=== PATIENT | female | born 1955 ===

== ENCOUNTER 2025-07-12 13:57 | Outpatient (REF) | payer OTHER, SELFPAY ==
[2025-07-12 18:08] LABS: MANUAL DIFF FLAG NO
[2025-07-12 18:13] LABS: Hematocrit 43.6 % (37.0-47.0); Hemoglobin 14.1 g/dl (12.0-16.0); Imm Gran Abs Auto 0.03 X10*3/uL (0.00-0.03); Imm Gran Pct Auto 0.4 % (0.0-0.4); Lymphocytes Absolute Auto 1.4 X10*3/uL (1.2-4.9); Mean Corpuscular HGB Conc 32.3 g/dl (31.0-35.0); Mean Corpuscular Hemoglobin 30.1 pg (27.0-33.0); Mean Corpuscular Volume 93.2 fL (80.0-98.0); NRBC Abs Auto 0.000 X10*3/uL (0.0-0.012); NRBC Pct Auto 0.0 /100WBC (0.0-0.2); Platelet Count 185 X10*3/uL (160-400); Red Blood Count 4.68 X10*6/uL (4.20-5.50); White Blood Count 7.2 X10*3/uL (4.8-10.8)
[2025-07-12 18:20] LABS: Appearance Urine Clear; Glucose Urine UA 100 mg/dL (Negative); PH 6.0 (5.0-9.0); Specific Gravity - Urine 1.010 (1.005-1.025); UMIC TRIGGER UACC YES
[2025-07-12 18:39] LABS: Alanine Aminotransferase 39 U/L (0-31); Albumin Level 4.3 g/dL (3.5-5.0); Alkaline Phosphatase 123 U/L (39-117); Anion Gap 11 (12-20); Aspartate Amino Transferase 46 U/L (5-31); Blood Urea Nitrogen 13 mg/dL (9-16); Calcium 9.7 mg/dL (8.4-10.2); Carbon Dioxide 30 mmol/L (22-29); Chloride 106 mmol/L (96-108); Cholesterol 184 mg/dL (<200); Estimated Glomerular Filt Rate > 60; HDL Cholesterol 52 mg/dL (>40); Magnesium 2.5 mg/dL (1.6-2.6); Potassium 4.7 mmol/L (3.3-5.1); Sodium 142 mmol/L (135-145); Total Protein 7.4 g/dL (6.5-8.0); Triglycerides 193 mg/dL (<150)
[2025-07-12 18:59] LABS: Folate > 20.0 ng/mL (> or = 4.0); Vitamin B12 > 2000 pg/mL (200-900)
[2025-07-12 19:39] LABS: Free T4 (Free Thyroxine) 0.89 ng/dL (0.71-1.85)
[2025-07-12 19:43] LABS: Microalbum/Creatinine Ratio Ur 12.7 ug/mg cr (<30)
[2025-07-13 04:31] LABS: Syphilis Screen Nonreactive (Nonreactive)
[2025-07-13 04:42] LABS: HBS Num1 0.00 mIU/mL (0-7.99); HBsAGNum1 0.24 S/CO (0.00-0.99); HIV Num 1 0.05 S/CO (0.00-0.99); Hepatitis B Surface Antigen Negative (Negative); ~HepC Num1 0.15 S/CO (0.00-0.79); ~Hepatitis B Surface Antibody NONREACTIVE (Nonreactive); ~Hepatitis C Antibody Nonreactive (Nonreactive)
[2025-07-18 17:32] LABS: VITAMIN D (1,25 OH) D3 49 pg/mL; Vit D (1,25-Dihydroxy) Total 49 pg/mL (18-72); Vitamin D (1,25 OH) D2 <8 pg/mL
== END 2025-07-12 13:58 | disposition home or self-care (01) ==
LOC: HO.HKASLDS 13:57
PROVIDERS: PCP Student in an Organized Health Care Education/Training Program; Visit Provider Student in an Organized Health Care Education/Training Program
DX: Z76.89 Persons encountering health services in other specified circumstances (principal); Z13.9 Encounter for screening, unspecified; E11.9 Type 2 diabetes mellitus without complications; D17.9 Benign lipomatous neoplasm, unspecified; M85.80 Other specified disorders of bone density and structure, unspecified site; M17.12 Unilateral primary osteoarthritis, left knee; Z85.43 Personal history of malignant neoplasm of ovary; Z90.710 Acquired absence of both cervix and uterus; Z98.49 Cataract extraction status, unspecified eye
CPT/HCPCS: 36415; 80053; 80061; 81001; 82043; 82570; 82607; 82652; 82746; 83036; 83735; 84439; 84443; 85025; 86706; 86780; 86803; 87340; 87389; 99202

== ENCOUNTER 2025-07-12 13:57 | Outpatient (AMB) | payer OTHER, SELFPAY ==
[2025-07-12 14:02] VITALS: BP 123/60; PULSE 82; RESP 16; TEMP 36.6; O2SAT 99; BMI 24.7
--- NOTE | 2025-07-12 14:02 | MHC.PC.OV ---
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: No Accompanied by: Self / Same As Patient Allergies No Known Allergies Allergy (Verified 07/12/25 14:03) Tobacco use date assessed: 07/12/25 Fall risk assessment: No Falls in past year Last assessed Fall Risk: 07/12/25 Dental Screening Dental Screen Date: 07/12/25 Did you have a dental visit in the last 12 months?: Yes Did you have a dental problem in the last 6 months where you did not have access to dental care?: No Was dental information given to patient?: Patient has dentist HPI HPI Comments History of Present Illness Details History of Present Illness The patient is a 69-year-old female presenting with management of diabetes mellitus type 2 and osteopenia , as well as evaluation of a lipoma and arthritis of the left knee. Diabetes Mellitus Type 2: - The patient has a history of diabetes mellitus type 2, with a recent hemoglobin A1c of 7.1% and glucose level of 147 mg/dL. - She has not consulted a director of teaching and learning or environmental educator recently. Osteopenia - The patient has osteopenia confirmed by a DEXA scan, and is currently taking calcium D3 supplements. Lipoma: - A lipoma was identified on the patient's back, which has been present for approximately three years and is increasing in size. Arthritis of the Left Knee: - The patient reports arthritis in the left knee, with associated pain and crepitus. She has been told by orthopedic surgeon she needs surgery and she refuses them surgery she has done conservative treatment with physical therapy and refuses to go to physical therapy Review of Systems - Musculoskeletal: Reports arthritis in the left knee with pain and crepitus. - Endocrine: Reports diabetes mellitus type 2, with recent A1c of 7.1%. 10-point ROS reviewed and negative except as noted in HPI Past Medical History - Diabetes Mellitus Type 2 - Ovarian Cancer - Osteopenia - Lipoma - Arthritis of the left knee Health Maintenance - Colonoscopy performed with polyp removal, repeat recommended in five years. - DEXA scan performed, confirming osteoporosis. - Mammography performed, next due in the coming year. -showed ovarian cancer as per patient she had ovary removed and uterus Physical Exam General: Well-appearing, in no acute distress. Uses a cane for ambulation. Vital signs: Within normal limits. HEENT: Normocephalic, atraumatic. PERRLA, EOMI. Conjunctiva clear, sclera anicteric. Oropharynx clear, mucous membranes moist. TMs intact bilaterally. Neck: Supple, no lymphadenopathy, no thyromegaly, no JVD or carotid bruits. Cardiovascular: RRR, normal S1/S2, no murmurs, rubs, or gallops. Peripheral pulses 2+ and symmetric. No edema. Respiratory: Lungs clear to auscultation bilaterally, no wheezes, rales, or rhonchi. Normal effort. Abdomen: Soft, non-tender, non-distended. Normoactive bowel sounds. No hepatosplenomegaly, no masses. MSK: Full range of motion, no joint swelling or deformity. Normal gait. Arthritis of the left knee noted with crepitus. Varicose veins present in the left leg and right leg. Skin: Warm, dry, intact. No rashes, lesions, or pallor. Neuro: Alert and oriented x3. Cranial nerves II-XII intact. Strength 5/5 throughout. Sensation intact. Reflexes 2+ symmetric. Normal coordination and gait. Psych: Appropriate mood and affect. Normal judgment and insight. Plan 1. Diabetes Mellitus Type 2 - Plan to order comprehensive metabolic panel and lipid panel to monitor diabetes control. - Encourage consultation with a director of teaching and learning and environmental educator. 2. Osteopenia - Continue calcium D3 supplementation. - Follow-up DEXA scan to monitor bone density. 3. Lipoma - Ultrasound ordered to evaluate the lipoma on the back. 4. Arthritis Of The Left Knee - Consideration for physical therapy to improve knee function and reduce pain. - Discussed potential for knee replacement surgery if conservative measures fail. Discussion Notes During the visit, we discussed the management of diabetes mellitus type 2, including the importance of regular monitoring and potential consultation with a director of teaching and learning. We also reviewed the patient's osteopenia management plan, emphasizing the continuation of calcium D3 supplementation and the need for follow-up DEXA scans. The lipoma on the patient's back will be evaluated with an ultrasound to determine its nature. For arthritis of the left knee, we considered physical therapy and discussed the possibility of knee replacement surgery if symptoms persist. Patient was informed and verbally consented to the use of an ambient scribe for clinic note documentation during this visit. Patient Instructions - Continue taking calcium D3 supplements as prescribed. - Schedule an appointment with a director of teaching and learning and environmental educator. - schedule appointment for interactive media designer - Follow up with the ordered ultrasound for the lipoma. - Consider physical therapy for knee arthritis. - Return for follow-up in two weeks to review test results and treatment progress. [facility] Medical History (Updated 07/12/25 @ 14:33 by Donnie Mayes MD) Lipoma Diabetes type 2 Family History (Updated 07/12/25 @ 14:12 by Earl Christy MA) Father Heart problem Cancer Mother Heart problem Social History (Updated 07/12/25 @ 14:12 by Earl Christy MA) Housing: Apartment Alcohol intake: current Alcohol intake frequency: does not drink Patient Tobacco Use Status: Never used Tobacco service: No Current occupational status: disabled Cognitive needs: Yes (cane) Hearing needs: No Vision needs: Yes (rx glasses) Questionnaire PHQ-9 Over the last 2 weeks, how often have you been bothered by any of the following problems? 1. Little interest or pleasure in doing things: several days 2. Feeling down, depressed, or hopeless: not at all 3. Trouble falling or staying asleep, or sleeping too much: nearly every day 4. Feeling tired or having little energy: nearly every day 5. Poor appetite or overeating: several days 6. Feeling bad about yourself - or that you are a failure or have let yourself or your family down: not at all 7. Trouble concentrating on things, such as reading the newspaper or watching television: several days 8. Moving or speaking so slowly that other people could have noticed. Or the opposite - being so fidgety or restless that you have been moving around a lot more than usual: several days 9. Thoughts that you would be better off or of hurting yourself in some way: not at all Total score: 10 Source: Developed by Drs. Willie Waller, Aixa Marino, Damon Dougherty and colleagues, with an educational ole from [employer]. Thrive Questionnaire I am a: Patient What is your living situation today?: I have a place to live, but I am worried about losing it in the future Within the past 12 months, did the food you bought not last and you didn't have the money to get more?: I choose not to answer this question Within the past 12 months, did you worry whether your food would run out before you got money to buy more?: Sometimes True Do you have trouble paying for medicines?: No Do you have trouble getting transportation to medical appointments?: No Do you have trouble paying your heating and electricity bill?: Yes Do you have trouble taking care of your child, family member or friend?: No Are you currently unemployed and looking for a job?: No Are you interested in more education?: I choose not to answer this question Please select the resources that you would like help with: None Currently or been in a relationship where the following occur: I choose not to answer THRIVE Score: 3 AUDIT C Alcohol Use Questionnaire (AUDIT-C) 1. How often do you have a drink containing alcohol?: Never Total Score: 0 RAHEEL-7 AMB Questionnaire RAHEEL-7 Feeling nervous, anxious, or on edge: 3 = Nearly every day Not being able to stop or control worryin = Several days Worrying too much about different things: 2 = More than half the days Trouble relaxin = More than half the days Being so restless that it is hard to sit still: 0 = Not at all Becoming easily annoyed or irritable: 0 = Not at all Feeling afraid as if something awful might happen: 0 = Not at all Total RAHEEL-7 score (0-4 normal; 5-9 mild; 10-14 moderate; 15-21 severe): 8 Source: Developed by Drs. Willie Waller, Aixa Marino, Damon Dougherty and colleagues, with an educational ole from [employer]. Physical exam (Primary Care) Vital Signs: Last Vital Signs Temp 97.8 F 07/12/25 14:02 Pulse 82 07/12/25 14:02 Resp 16 07/12/25 14:02 BP 123/60 07/12/25 14:02 Pulse Ox 99 07/12/25 14:02 Oxygen Delivery Method Room Air 07/12/25 14:02 BMI result Body Mass Index 24.7 Tobacco/Smoking Status: Tobacco use Status Tobacco use date assessed 07/12/25 07/12/25 14:15 Patient Tobacco Use Status Never used Tobacco 07/12/25 14:15 PHQ-9: PHQ-9 Score PHQ-9: Total score 10 07/12/25 14:15 Currently or been in a relationship where the following occur: I choose not to answer Coding Level of Care Code New Pt Level 3 (54703) Diagnoses Establishing care with new doctor, encounter for Z76.89 Encounter for screening, unspecified Z13.9 Diabetes type 2 E11.9 Lipoma D17.9 Osteopenia M85.80 History of ovarian cancer Z85.43 History of hysterectomy Z90.710 Arthritis of left knee M17.12 History of cataract surgery Z98.49 Assessment & Plan Assessment & Plan (1) Establishing care with new doctor, encounter for: Code(s): Z76.89 - Persons encountering health services in other specified circumstances (2) Encounter for screening, unspecified: Code(s): Z13.9 - Encounter for screening, unspecified (3) Diabetes type 2: Code(s): E11.9 - Type 2 diabetes mellitus without complications Category: Medical (4) Lipoma: Code(s): D17.9 - Benign lipomatous neoplasm, unspecified Category: Medical (5) Osteopenia: Code(s): M85.80 - Other specified disorders of bone density and structure, unspecified site (6) History of ovarian cancer: Code(s): Z85.43 - Personal history of malignant neoplasm of ovary (7) History of hysterectomy: Code(s): Z90.710 - Acquired absence of both cervix and uterus (8) Arthritis of left knee: Code(s): M17.12 - Unilateral primary osteoarthritis, left knee (9) History of cataract surgery: Code(s): Z98.49 - Cataract extraction status, unspecified eye Plan Orders: Orders Complete Blood Count Auto Diff Today Z13.9 - Encounter for screening, unspecified, Z76.89 - Persons encountering health services in other specified circumstances Comprehensive Met. Panel Today Z13.9 - Encounter for screening, unspecified, Z76.89 - Persons encountering health services in other specified circumstances Hemoglobin A1c Today Z13.9 - Encounter for screening, unspecified, Z76.89 - Persons encountering health services in other specified circumstances Hepatitis B Surface Antigen Today Z13.9 - Encounter for screening, unspecified, Z76.89 - Persons encountering health services in other specified circumstances Magnesium Today Z13.9 - Encounter for screening, unspecified, Z76.89 - Persons encountering health services in other specified circumstances Syphilis Screen Today Z13.9 - Encounter for screening, unspecified, Z76.89 - Persons encountering health services in other specified circumstances UA CC w/rflx Micro + Cult Today Z13.9 - Encounter for screening, unspecified, Z76.89 - Persons encountering health services in other specified circumstances Vitamin B12 and Folate Today Z13.9 - Encounter for screening, unspecified, Z76.89 - Persons encountering health services in other specified circumstances Hepatitis B Surface Antibody Today Z13.9 - Encounter for screening, unspecified, Z76.89 - Persons encountering health services in other specified circumstances Hepatitis C Antibody Today Z13.9 - Encounter for screening, unspecified, Z76.89 - Persons encountering health services in other specified circumstances HIV Ab/Ag Today Z13.9 - Encounter for screening, unspecified, Z76.89 - Persons encountering health services in other specified circumstances Lipid Panel Today Z13.9 - Encounter for screening, unspecified, Z76.89 - Persons encountering health services in other specified circumstances TSH reflex Free T4 Today Z13.9 - Encounter for screening, unspecified, Z76.89 - Persons encountering health services in other specified circumstances Vitamin D 1,25 dihydroxy Today Z13.9 - Encounter for screening, unspecified, Z76.89 - Persons encountering health services in other specified circumstances Microalbumin, Random (w Creat) Today Z13.9 - Encounter for screening, unspecified, Z76.89 - Persons encountering health services in other specified circumstances Referrals Podiatry Referral E11.9 - Type 2 diabetes mellitus without complications, Z13.9 - Encounter for screening, unspecified Nutrition/Dietitian Referral E11.9 - Type 2 diabetes mellitus without complications Nurse Navigator Referral E11.9 - Type 2 diabetes mellitus without complications
--- OUTSIDE RECORDS SUMMARY | 2025-07-12 15:11 | XMS_ITS | Clinical Summary ---
Author Organization [address] Address [address] [place] [phone] Phone Care Team Providers Care Environmental Health Technologist Name Role Phone Sravani Washington MD Primary Care Prov ider Allergies No known active allergies Medications lancing device (BD LANCET DEVICE MISC) LANCET DEVICES (ONE TOUCH DELICA LANCING DEV) MISC 1 Each by Does not apply route daily. 06/27/20 24 Active blood-glucose meter kit BLOOD GLUCOSE MONITORING SUPPL (ONE TOUCH ULTRA SYSTEM KIT) W/DEVICE KIT Test bs 1 time daily 06/27/20 24 Active cholecalcifero l (VITAMIN D-3) 25 mcg (1,000 unit) capsule TAKE 1 CAPSULE BY MOUTH EVERY DAY 02/09/20 24 Active DULoxetine (CYMBALTA) [address] capsule TAKE 1 CAPSULE BY MOUTH EVERY DAY IN THE MORNING 12/30/19 23 Active vitamin E acetate (VITAMIN E ORAL) Take by mouth. Daily Active zolpidem (AMBIEN) 10 mg tablet TAKE 1 TABLET BY MOUTH EVERYDAY AT BEDTIME 06/24/20 20 Active blood-glucose meter kit Use once daily to check blood sugars 08/30/20 19 Active calcium carbonate-paris min D 600 mg-10 mcg (400 unit) per tablet TAKE 1 TABLET BY MOUTH TWICE A DAY 180 tablet 11/25/19 25 Active gabapentin (NEURONTIN) 600 mg tablet TAKE 1 TABLET BY MOUTH EVERY DAY 90 tablet 1 11/25/19 25 Active glucose blood (Blood Glucose Test) test strip USE INSTRUCTED 100 strip 12 12/01/19 25 Active lancets 33 gauge misc 1 (ONE) TIME EACH DAY. ONE TOUCH 100 each 3 12/01/19 25 026 Active dulaglutide (Trulicity) 1.5 mg/0.5 mL pen injector injection INJECT 0.5 ML (1.5 MG TOTAL) UNDER THE SKIN EVERY 7 (SEVEN) DAYS. 6 mL 1 02/18/20 25 Active triamcinolone (KENALOG) 0.1 % ointment Apply to the affected area nightly, if needed can use in the itchy area twice daily for up to two weeks. Otherwise continue nightly use 30 g 1 03/16/20 25 Active cetirizine (ZyrTEC) 10 mg tablet Take 1 tablet (10 mg total) by mouth 1 (one) time each day. 30 each 03/30/20 25 Active pravastatin (PRAVACHOL) 10 mg tablet TAKE 1 TABLET BY MOUTH EVERY DAY 90 tablet 1 04/03/20 25 Active aspirin 81 mg chewable tablet TAKE 1 TABLET BY MOUTH EVERY DAY 90 tablet 1 04/26/20 25 Active docusate sodium (COLACE) 100 mg capsule TAKE 1 CAPSULE BY MOUTH 1 TIME EACH DAY. 90 capsule 1 05/18/20 25 Active propranolol LA (INDERAL LA) 120 mg 24 hr capsule TAKE 1 CAPSULE BY MOUTH EVERY DAY 90 capsule 1 07/03/20 25 Active propranolol LA (INDERAL LA) 120 mg 24 hr capsule TAKE 1 CAPSULE BY MOUTH EVERY DAY 90 capsule 1 11/25/19 25 025 Discontinued Active Problems Problem Noted Date Diagnosed Date Lichen sclerosus 12/26/2024 Assessment & Plan (03/16/2025 2:23 PM EDT): Reviewed findings with patient. Well controlled. I reviewed the importance of regular maintenance topical steroid use to prevent symptoms, further scarring, and squamous cell cancer of the vulva. I also explained the importance of regular follow up to ensure she has no evidence of precancerous or cancerous changes and that she is not having side effects from her medication. I reviewed areas of application and amount of medication to use. Continue nightly triamcinolone and QAM coconut oil. Assessment & Plan (02/02/2025 3:59 PM EDT): I encouraged Shavonne to cut back on her triamcinolone to nightly with coconut oil in AM. She agrees to do this. Will follow up in 6 weeks. Assessment & Plan (12/26/2024 12:43 PM EDT): Reviewed findings with patient. I counseled her that findings are consistent with lichen sclerosus. I explained this is likely an autoimmune inflammatory condition and that the mainstay of therapy is use of maintenance topical steroid. I explained that women with lichen sclerosus are at about a 5 fold increased risk of SCC over the general population. Explained that the purpose of the steroid is to prevent symptoms, further scarring, and squamous cell cancer of the vulva. I also explained the importance of regular follow up to ensure she has no evidence of precancerous or cancerous changes and that she is not having side effects from her medication. I reviewed areas of application and amount of medication to use. She voiced understanding. She was given [facility] information re: LS today and will call with any questions. She will apply the triamcinolone ointment twice daily for two weeks, then nightly with coconut oil in the morning. Controlled type 2 diabetes migue mensah with complication, with long-term current use of insulin ([facility] V24, [facility] V28) 07/29/2024 Assessment & Plan (11/30/2024 11:57 AM EST): Fair control of diabetes. A1C: 8.9 Patient will continue with yearly Podiatric and Ophthomologic evaluations. Continue Dulaglutide 1.5mg. Patient does not tolerate metformin. Will recheck A1C before her next visit and adjust accordingly. Orders: Comprehensive metabolic panel; Future Hemoglobin A1c; Future Lipid panel with reflex to direct LDL; Future Microalbumin creatinine urine ratio; Future Renal cyst 02/13/2022 Stage 3a chronic kidney disease ([facility] V24, S/[facility] V28) 09/30/2021 Assessment & Plan (03/30/2025 2:50 PM EDT): Assessment & Plan (11/30/2024 11:57 AM EST): GFR has been borderline around 60. Patient is instructed to avoid nephrotoxics. I instructed her to prefer Tylenol for pain. Continue gabapentin as needed for neuropathic pain. DM (diabetes mellitus), type 2 with renal complications ([facility] V24, [facility] V28) 07/18/2021 Assessment & Plan (03/30/2025 2:50 PM EDT): Orders: Hemoglobin A1c; Future Basic metabolic panel; Future POLLOCK (nonalcoholic steatohepatitis) 12/08/2020 Elevated liver enzymes 12/08/2020 Chronic cough 04/16/2020 Constipation 11/11/2018 Osteopenia 08/11/2018 Vitamin D deficiency 07/04/2016 Insomnia 04/15/2016 High cholesterol 02/08/2014 Assessment & Plan (03/30/2025 2:50 PM EDT): Orders: Hemoglobin A1c; Future Basic metabolic panel; Future Assessment & Plan (11/30/2024 11:57 AM EST): Given the patients cardiac risk profile, the patient requires an LDL cholesterol of less than 70. Continue Pravastatin. I have instructed the patient on the principles of a low cholesterol diet and the importance of regular exercise. Back pain 12/22/2012 Overview (07/29/2024): H/o LS DJD Migraine 12/22/2012 Anxiety 12/22/2012 Immunizations Immunization Administration Dates Next Due Influenza Quadravalent, MDCK , 0.5ml, preservative free (Flucelvax) 6mo and older 06/28/2020 Influenza Quadravalent, MDCK , 0.5ml, with preservative (Flucelvax) 6mo and older 09/20/2021,07/10/2019,06/29/2017 Influenza trivalent, 0.5mL ( Fluad) 65yo and older 07/27/2023,07/29/2022 Influenza trivalent, 0.5mL ( Fluzone High-dose) 65yo and older 11/30/2024 Influenza trivalent, with pr eservative (Fluzone; Afluria) 6mo and older 07/04/2016,07/30/2015,07/21/2014,10/25 Pfizer SARS-CoV-2 COVID-19, mRNA, LNP-S, preservative free 02/03/2021 Pneumococcal conjugate 13 va lent (Prevnar 13, PCV13) 2mo and older 04/21/2022 Pneumococcal conjugate 20 va lent (Prevnar 20, PCV 20) 2mo and older 07/27/2023 Pneumococcal polysaccharide 23 valent (Pneumovax 23) 2yo and older 02/15/2016 TD, Adsorbed, Preservative Free 02/08/2014 Tdap Tetanus diptheria acell ular pertussis (Boostrix; Adacel) 7yo and older 05/20/2016 Zoster recombinant (Shingrix ) 19yo and older 07/10/2019 Surgical History Surgery Date Site/Laterality Comments HYSTERECTOMY PROCEDURE: HISTORICAL HYSTERECTOMY; COMMENT: 2003 CHOLECYSTECTOMY PROCEDURE: HISTORICAL CHOLECYSTECTOMY; COMMENT: 2011 BREAST BIOPSY 2017 Bilateral PROCEDURE: BX BREAST; PERC NEEDLE CORE W/IMAG GUID; COMMENT: 2017 b/l neg Medical History Medical History Date Comments Other specified personal his tory presenting hazards to health(V15.89) DX:Other specifie d personal history presenting hazards to health(V15.89) Endometrial cancer ([facility] V24, [facility] V28) 2000 DX:Endometrial cancer (HCC) Vitamin D deficiency 07/04/2016 DX:Vitamin D deficiency Osteopenia 08/11/2018 DX:Osteopenia Diabetes mellitus type 2, co ntrolled ([facility] V24, [facility] V28) 12/22/2012 DX:Diabetes mellitus type 2 , controlled (HCC) Constipation 11/11/2018 DX:Constipation Abnormal LFTs (liver function tests) DX:Abnormal LFTs (liver function tests) Autoimmune hepatitis ([facility] V24, [facility] V28) DX:Autoimmune hepatitis (HCC ) CKD (chronic kidney disease) stage 3, GFR 30-59 ml/min ([facility] V24, [facility] V28) 07/18/2021 DX:CKD (chronic kidney disea se) stage 3, GFR 30-59 ml/min ([facility]) DM (diabetes mellitus), type 2 with renal complications ([facility] V24, [facility] V28) 07/18/2021 DX:DM (diabetes mellitus), t ype 2 with renal complications (HCC) Family History Medical History Relation Name Comments Esophageal cancer Father No Known Problems Mother Breast cancer Sister 71 Cataracts Sister 71 Glaucoma Sister 71 Blindness Neg Hx Macular degeneration Neg Hx Strabismus Neg Hx Relation Name Status Comments Daughter Alive Father Mother Sister 71 Alive Son 1 Alive Son 2 Alive Social History Tobacco Use Types Packs/Day Years Used Date Smoking Tobacco: Never Smokeless Tobacco: Never Tobacco Cessation:Counseling Given: Not Answered Alcohol Use Standard Drinks/Week Comments No 0 (1 standard drink = 0.6 oz pur e alcohol) Interpersonal Safety Answer Date Record ed Physical Abuse Unrecognized value 09/15/2024 Verbal Abuse Unrecognized value 09/15/2024 Comments No Sex and Gender Information Value Date Recorded Sex Assigned at Not on file Legal Sex Female 6:16 PM EST Gender Identity Not on file Sexual Orientation Not on file Obstetrics History Para Term AB IAB SAB Ectopic Multiple Livin g Live Births 3 3 3 0 0 1 1 1 Date Outcome GA Total Labor Labor/2nd/3rd Weight Sex Type Anes PTL Cristel A1 A5 Name Clin Term Term Living Term Demise Term Last Filed Vital Signs Vital Sign Reading Time Taken Comments Blood Pressure 113/62 03/30/2025 1:00 PM EDT Pulse 78 03/30/2025 1:00 PM EDT Temperature 36.3 C (97.4 F) 11/30/2024 11:02 AM EST Respiratory Rate 14 02/02/2025 3:44 PM EDT Oxygen Saturation 99% 09/15/2024 1:13 PM EST Inhaled Oxygen Concentration - - Weight 63 kg (139 lb) 03/30/2025 1:00 PM EDT Height 162.6 cm (5' 4 ) 03/30/2025 1:00 PM EDT Body Mass Index 23.86 03/30/2025 1:00 PM EDT Plan of Treatment Upcoming Encounters Date Type Department Care Team (Late st Contact Info) Description 10/03/2025 11:30 AM EST Office Visit Adult Medicine [address] [phone] Sravani Washington MD [address] [place] [address] 12/20/2025 4:30 PM EDT Appointment Radiology Department - [address] [phone] Health Maintenance Due Date Last Done Comments RSV Immunization Adult Patients (1 - Risk 60-74 years 1-dose series) 2016 Zoster Vaccines (2 of 2) 09/04/2019 07/10/2019 Medicare Annual Wellness Visit 09/20/2022 Social Influencers of Health Screening 09/20/2022 Depression Screening 10/12/2024 04/07/2024 COVID-19 Vaccine ( season) 2025 04/05/2022, 09/20/2021, 02/03/2021, Additional history exists Influenza Vaccine (#1) 2025 , 07/27/2023, 07/29/2022, Additional history exists Diabetes: Annual Foot Exam 07/14/2025 07/14/2024 Falls Risk Assessment 09/15/2025 09/15/2024 Diabetes: Blood Sugar Control Test (HGBA1C) 09/22/2025 03/23/2025, 09/01/2024, 05/16/2024, Additional history exists Diabetes: Annual Retina Eye Exam 02/20/2026 02/20/2025, 08/08/2024, 06/08/2024 Diabetes: Annual Urine Albumin-Creatinine Ratio (uACR) 03/23/2026 03/23/2025, 05/16/2024 Diabetes: Annual GFR (Glomerular Filtration Rate) 03/23/2026 03/23/2025, 07/13/2023 Hypertension/CHF/CAD Annual BMP Blood Test 03/23/2026 03/23/2025, 07/13/2023 DTaP,Tdap,and Td Vaccines (2 - Td or Tdap) 05/20/2026 05/20/2016, 02/08/2014 Breast Cancer Screening 12/14/2026 12/15/19, 05/30/2023, 05/26/2022, Additional history exists Colorectal Cancer Screening: Colonoscopy 09/15/2027 09/15/2024 Cholesterol Screening (Lipid Panel) 03/23/2030 03/23/2025, 07/13/2023 Osteoporosis Screening (Bone Density Screening) 12/15/2034 12/15/2024 Hepatitis C Screening Completed 11/22/2018 Pneumococcal Vaccine: 50+ Years Completed 07/27/2023, 04/21/2022, 02/15/2016 HIB Vaccines Aged Out No longer eligi ble based on patient's age to complete this topic HPV Vaccines Aged Out No longer eligi ble based on patient's age to complete this topic Hepatitis A Vaccines Aged Out No long er eligible based on patient's age to complete this topic Hepatitis B Vaccines Aged Out No long er eligible based on patient's age to complete this topic IPV Vaccines Aged Out No longer eligi ble based on patient's age to complete this topic MMR Vaccines Aged Out No longer eligi ble based on patient's age to complete this topic Meningococcal ACWY Vaccine Aged Out N o longer eligible based on patient's age to complete this topic Meningococcal B Vaccine Aged Out No l onger eligible based on patient's age to complete this topic RSV Immunization Patients Under 20 months Aged Out No longer eligible based on patient's age to complete this topic Varicella Vaccines Aged Out No longer eligible based on patient's age to complete this topic Procedures Procedure Name Priority Date/Time Associated Diagnosis Comments MICROALBUMIN CREATININE URINE RATIO Routine 03/23/2025 11:44 AM EDT Controlled type 2 diabetes mellitus with complication, with long-term current use of insulin ([facility] V24, [facility] V28) COMPREHENSIVE METABOLIC PANEL Routine 03/23/2025 11:44 AM EDT Controlled type 2 diabetes mellitus with complication, with long-term current use of insulin ([facility] V24, [facility] V28) HEMOGLOBIN A1C Routine 03/23/2025 11:44 AM EDT Controlled type 2 diabetes mellitus with complication, with long-term current use of insulin ([facility] V[facility], [facility] V28) LIPID PANEL WITH REFLEX TO DIRECT LDL Routine 03/23/2025 11:44 AM EDT Controlled type 2 diabetes mellitus with complication, with long-term current use of insulin ([facility] V[facility], [facility] V28) EXTERNAL DIABETIC RETINA EYE EXAM 02/20/2025 BD BONE DENSITY DXA AXIAL SKELETON Routine 12/15/2024 3:01 PM EST Osteoporosis screening MG MAMMO DIGITAL SCREENING W CRESENCIO BILAT Routine 12/14/2024 4:27 PM EST Encounter for screening mammogram for malignant neoplasm of breast COLONOSCOPY Routine 09/15/2024 12:52 PM EST Special screening for malignant neoplasms, colon DEPRESSION SCREENING Routine 04/07/2024 HEPATITIS C SCREENING Routine 11/22/2018 from Last 3 Months or Most Recently Relevant to Health Maintenance Results * (ABNORMAL) Lipid panel with reflex to direct LDL (03/23/2025 11:44 AM EDT) Cholesterol 179 0 - 200 mg/dL LAB CHEMISTRY METHOD 03/23/2025 3:05 PM [facility] Triglycerides 195(H) 0 - 150 mg/dL LAB CHEMISTRY METHOD 03/23/2025 3:05 PM [facility] HDL 54 >=40 mg/dL LAB CHEMISTRY METHOD 03/23/2025 3:05 PM [facility] LDL Calculated 86 0 - 100 mg/dL LAB CHEMISTRY METHOD 03/23/2025 3:05 PM [facility] VLDL Cholesterol Abdulaziz 39 mg/dL LAB CHEMISTRY METHOD 03/23/2025 3:05 PM [facility] Non HDL Chol. (LDL+VLDL) 125 <145 mg/dL LAB CHEMISTRY METHOD 03/23/2025 3:05 PM [facility] Chol/HDL Ratio 3.3 0.0 - 4.4 LAB CHEMISTRY METHOD 03/23/2025 3:05 PM [facility] Blood Venous blood specimen / Unknown Venipuncture / Unknown 03/23/2025 11:44 AM EDT 03/23/2025 11:44 AM EDT Sravani Washington MD LAB BLOOD ORDERABL ES Final Result Performing Organization Address [facility]/ZIP Co de Phone Number [facility] [address] [place] [address], [place] [phone] * Microalbumin creatinine urine ratio (03/23/2025 11:44 AM EDT) Creatinine, Urine 130.0 mg/dL LAB CHEMISTRY METHOD 03/23/2025 4:43 PM EDT [facility] Microalb, Ur 11.1 0.0 - 29.0 mg/L LAB CHEMISTRY METHOD 03/23/2025 4:43 PM EDT [facility] Microalb/Creat Ratio 9 <30 mg/g creat LAB CHEMISTRY METHOD 03/23/2025 4:43 PM EDT [facility] Urine Urine specimen obtained by clean catch procedure / Unknown Non-blood Collection / Unknown 03/23/2025 11:44 AM EDT 03/23/2025 11:44 AM EDT us Sravani Washington MD LAB URINE ORDERABL ES Final Result Performing Organization Address [facility]/ZIP Co de Phone Number [facility] [address] [place] [address], [place] [phone] * (ABNORMAL) Hemoglobin A1c (03/23/2025 11:44 AM EDT) Hemoglobin A1C 7.1(H) <6.5 % LAB CHEMISTRY METHOD 03/23/2025 9:04 PM EDT [facility] Mean Bld Glu Estim. 157 mg/dL LAB CHEMISTRY METHOD 03/23/2025 9:04 PM EDT [facility] Blood Venous blood specimen / Unknown Venipuncture / Unknown 03/23/2025 11:44 AM EDT 03/23/2025 11:44 AM EDT Sravani Washington MD LAB BLOOD ORDERABL ES Final Result [facility] [address] [place] [address], [place] [phone] * (ABNORMAL) Comprehensive metabolic panel (03/23/2025 11:44 AM EDT) Pathologist [facility] Sodium 137 133 - 145 mmol/L LAB CHEMISTRY METHOD 03/23/2025 3:05 PM [facility] Potassium 4.9 3.5 - 5.5 mmol/L LAB CHEMISTRY METHOD 03/23/2025 3:05 PM [facility] Chloride 102 96 - 110 mmol/L LAB CHEMISTRY METHOD 03/23/2025 3:05 PM [facility] CO2 32 21 - 32 mmol/L LAB CHEMISTRY METHOD 03/23/2025 3:05 PM [facility] Anion Gap 3 3 - 11 LAB CHEMISTRY METHOD 03/23/2025 3:05 PM [facility] Glucose 147(H) 70 - 100 mg/dL LAB CHEMISTRY METHOD 03/23/2025 3:05 PM [facility] BUN 12 5 - 25 mg/dL LAB CHEMISTRY METHOD 03/23/2025 3:05 PM [facility] Creatinine 0.92 0.50 - 1.10 mg/dL LAB CHEMISTRY METHOD 03/23/2025 3:05 PM [facility] eGFR 68 >=60 mL/min/1. 73m2 LAB CHEMISTRY METHOD 03/23/2025 3:05 PM [facility] Comment:Calculation based on the Chronic Kidney Disease Epidemiology Collaboration (CKD-EPI) equation refit without adjustment for race. BUN/Creatinine Ratio 13.0 LAB CHEMISTRY METHOD 03/23/2025 3:05 PM [facility] Calcium 9.7 8.5 - 10.5 mg/dL LAB CHEMISTRY METHOD 03/23/2025 3:05 PM [facility] AST (SGOT) 42 10 - 42 unit/L LAB CHEMISTRY METHOD 03/23/2025 3:05 PM [facility] ALT (SGPT) 53 10 - 60 unit/L LAB CHEMISTRY METHOD 03/23/2025 3:05 PM [facility] Alkaline Phosphatase 136(H) 42 - 121 unit/L LAB CHEMISTRY METHOD 03/23/2025 3:05 PM [facility] Total Protein 7.0 6.0 - 8.0 g/dL LAB CHEMISTRY METHOD 03/23/2025 3:05 PM [facility] Albumin 3.8 3.2 - 5.0 g/dL LAB CHEMISTRY METHOD 03/23/2025 3:05 PM [facility] Total Bilirubin 0.6 0.0 - 1.4 mg/dL LAB CHEMISTRY METHOD 03/23/2025 3:05 PM [facility] Blood Venous blood specimen / Unknown Venipuncture / Unknown 03/23/2025 11:44 AM EDT 03/23/2025 11:44 AM EDT us Sravani Washington MD LAB BLOOD ORDERABL ES Final Result [facility] [address] [place] [address], [place] [phone] * External Diabetic Retina Eye Exam Report (02/20/2025) Anatomical Region Laterality Modality Ultrasound us Provider [facility] US PROCEDURES Final Result * BD Bone Density DXA Axial Skeleton (12/15/2024 3:01 PM EST) Anatomical Region Laterality Modality Wrist, Hip, L-spine Bone Densito metry 12/16/2024 4:52 PM EST Impressions 12/16/2024 4:53 PM EST Osteopenia. The NOF guidelines recommend that FDA approved medical therapies be considered in postmenopausal women and men age >50 years with a: i. Hip or vertebral (clinical or morphometric) fracture ii. T score of < -2.5 at the spine or hip iii. 10 year fracture probability by FRAX of >3% for hip fracture, or >20% for major osteoporotic fracture PLEASE NOTE: W.H.O. classification is based on lowest measured density at the spine, femoral neck, or total hip.This classification has prognostic significance when applied to post menopausal women and older men. 1) The World Health Organization defines low BMD as follows: T-score Normal at or > -1 Osteopenia < -1 and > -2.5 Osteoporosis at or < -2.5 without fractures Established osteoporosis < -2.5 with fractures -------- FINAL REPORT -------- Dictated By: Johanne Brumfield Dictated Date: 12/16/2024 16:52 ET Assigned Physician: Johanne Brumfield Reviewed and Electronically Signed By: Johanne Brumfield Signed Date: 12/16/2024 16:53 ET Workstation ID: [id number] Transcribed By: Self Edit Transcribed Date: 12/16/2024 16:52 ET Narrative 12/16/2024 4:53 PM EST Clinical history: osteoporosis Scans of the lumbar spine and hips were performed on a [employer], fan beam bone densitometer. Bone mineral density measurements and associated T and Z scores respectively are as follows: Lumbar Spine: L1-L4 BMD: 0.858 g/cm2 T-Score: -1.7 Z-Score: 0.3 Left Proximal Femur: Neck BMD: 0.708 g/cm2 T-Score: -1.3 Z-Score: 0.2 Total BMD: 0.822 g/cm2 T-Score: -1.0 Z-Score: 0.3 Compared with standards for the young adult, lowest measured bone density places the patient in the W.H.O. osteopenic range. FRAX 10 year probability of major osteoporotic fracture: 4.7% FRAX 10 year probability of hip fracture: 0.5% Population: [place] () Procedure Note Johanne Brumfield MD - 12/16/2024 Clinical history: osteoporosis Scans of the lumbar spine and hips were performed on a [employer] beam bone densitometer. Bone mineral density measurements and associated T and Z scoresrespectively are as follows: Lumbar Spine: L1-L4 BMD: 0.858 g/cm2 T-Score: -1.7 Z-Score: 0.3 Left Proximal Femur: Neck BMD: 0.708 g/cm2 T-Score: -1.3 Z-Score: 0.2 Total BMD: 0.822 g/cm2 T-Score: -1.0 Z-Score: 0.3 Compared with standards for the young adult, lowest measured bone densityplaces the patient in the W.H.O. osteopenic range. FRAX 10 year probability of major osteoporotic fracture: 4.7% FRAX 10 year probability of hip fracture: 0.5% Population: [place] () IMPRESSION: Osteopenia. The NOF guidelines recommend that FDA approved medical therapies beconsidered in postmenopausal women and men age >50 years with a: i. Hip or vertebral (clinical or morphometric) fracture ii. T score of < -2.5 at the spine or hip iii. 10 year fracture probability by FRAX of >3% for hip fracture, or >20%for major osteoporotic fracture PLEASE NOTE: W.H.O. classification is based on lowest measured density at the spine,femoral neck, or total hip.This classification has prognostic significancewhen applied to post menopausal women and older men. 1) The World Health Organization defines low BMD as follows: T-score Normal at or > -1 Osteopenia < -1 and > -2.5 Osteoporosis at or < -2.5 withoutfractures Established osteoporosis < -2.5 with fractures -------- FINAL REPORT -------- Dictated By: Johanne Brumfield Dictated Date: 12/16/2024 16:52 ET Assigned Physician: Johanne Brumfield Reviewed and Electronically Signed By: Johanne Brumfield Signed Date: 12/16/2024 16:53 ET Workstation ID: [id number] Transcribed By: Self Edit Transcribed Date: 12/16/2024 16:52 ET us Sravani Washington MD IMG DXA PROCEDURES Final Result * MG Mammo Digital Screening w Cresencio bilat (12/14/2024 4:27 PM EST) Anatomical Region Laterality Modality Breast Bilateral Mammography 12/15/2024 6:03 PM EST Impressions 12/15/2024 6:05 PM EST No mammographic evidence of malignancy. BREAST DENSITY: B - There are scattered areas of fibroglandular density. BI-RADS CATEGORY: 1 - NEGATIVE RECOMMENDATION: Screening bilateral mammogram is recommended in 1 year. MAMMO LOCATION: [facility], [address] [place] [address], [id number], . -------- FINAL REPORT -------- Dictated By: Christa Garzon Dictated Date: 12/15/2024 18:03 ET Assigned Physician: Christa Garzon Reviewed and Electronically Signed By: Christa Garzon Signed Date: 12/15/2024 18:05 ET Workstation ID: [id number] Transcribed By: Self Edit Transcribed Date: 12/15/2024 18:03 ET Narrative 12/15/2024 6:05 PM EST EXAM: Screening Mammogram CLINICAL: 69 years old, Female, routine annual exam. COMPARISON: 05/30/2023 and as far back as 05/16/2020 TECHNIQUE: Bilateral MLO and CC views were obtained digitally with 3-D mammogram (digital breast tomosynthesis). Computer-aided detection was utilized in evaluation of this exam (CAD). FINDINGS: No new suspicious mass, architectural distortion, or suspicious calcifications. Procedure Note Christa Garzon MD - 12/15/2024 EXAM: Screening Mammogram CLINICAL: 69 years old, Female, routine annual exam. COMPARISON: 05/30/2023 and as far back as 05/16/2020 TECHNIQUE: Bilateral MLO and CC views were obtained digitally with 3-Dmammogram (digital breast tomosynthesis). Computer-aided detection wasutilized in evaluation of this exam (CAD). FINDINGS: No new suspicious mass, architectural distortion, or suspiciouscalcifications. IMPRESSION: No mammographic evidence of malignancy. BREAST DENSITY: B - There are scattered areas of fibroglandular density. BI-RADS CATEGORY: 1 - NEGATIVE RECOMMENDATION: Screening bilateral mammogram is recommended in 1 year. MAMMO LOCATION: [facility], [address] [place] [address], [id number], . -------- FINAL REPORT -------- Dictated By: Christa Garzon Dictated Date: 12/15/2024 18:03 ET Assigned Physician: Christa Garzon Reviewed and Electronically Signed By: Christa Garzon Signed Date: 12/15/2024 18:05 ET Workstation ID: [id number] Transcribed By: Self Edit Transcribed Date: 12/15/2024 18:03 ET Sravani Washington MD IM BI PROCEDURES Final Result * COLONOSCOPY Anesthesia - MAC; [facility] (09/15/2024 12:52 PM EST) Anatomical Region Laterality Modality Other 09/15/2024 12:3 1 PM EST Impressions 09/15/2024 12:54 PM EST - Hemorrhoids found on perianal exam. - Two 5 to 9 mm polyps in the transverse colon and in the cecum, removed with a cold snare. Resected and retrieved. - One 3 mm polyp in the ascending colon, removed with a jumbo cold forceps. Resected and retrieved. - One 10 mm polyp in the sigmoid colon, removed with a hot snare. Resected and retrieved. - The examination was otherwise normal on direct and retroflexion views. Recommendation: - - Discharge patient to home. - High fiber diet. - Continue present medications. - Await pathology results. - Repeat colonoscopy for surveillance based on pathology results. Narrative 09/15/2024 12:[address] [facility] Patient Name: Shavonne Alexis Procedure Date: 09/15/2024 12:31 PM Date of : 1955 Age: 69 Gender: Female Note Status: Finalized Attending MD: Carlos Cintron DO, [id number] Procedure Date No Time: 09/15/2024 Procedure: Colonoscopy Indications: Screening for colorectal malignant neoplasm Providers: Carlos Cintron DO Referring MD: Carlos Cintron DO Medicines: Monitored Anesthesia Care Complications: No immediate complications. Estimated blood loss: Minimal. Estimated Blood Loss: Estimated blood loss was minimal. Procedure: Pre-Anesthesia Assessment: - - Prior to the procedure, a History and Physical was performed, and patient medications and allergies were reviewed. The patient is competent. The risks and benefits of the procedure and the sedation options and risks were discussed with the patient. All questions were answered and informed consent was obtained. Patient identification and proposed procedure were verified by the physician, the nurse, the anesthesiologist, the synthetic chemist and the emissions repair technician in the pre-procedure area in the endoscopy suite. Mental Status Examination: alert and oriented. Airway Examination: normal oropharyngeal airway and neck mobility. Respiratory Examination: clear to auscultation. CV Examination: normal. Prophylactic Antibiotics: The patient does not require prophylactic antibiotics. Prior Anticoagulants: The patient has taken no anticoagulant or antiplatelet agents. ASA Grade Assessment: II - A patient with severe systemic disease. After reviewing the risks and benefits, the patient was deemed in satisfactory condition to undergo the procedure. The anesthesia plan was to use monitored anesthesia care (MAC). Immediately prior to administration of medications, the patient was re-assessed for adequacy to receive sedatives. The heart rate, respiratory rate, oxygen saturations, blood pressure, adequacy of pulmonary ventilation, and response to care were monitored throughout the procedure. The physical status of the patient was re-assessed after the procedure. After I obtained informed consent, the scope was passed under direct vision. Throughout the procedure, the patient's blood pressure, pulse, and oxygen saturations were monitored continuously. The Olympus Pediatric Colonoscope was introduced through the anus and advanced to the cecum, identified by appendiceal orifice and ileocecal valve. The colonoscopy was performed without difficulty. The patient tolerated the procedure well. The quality of the bowel preparation was good. Findings: Hemorrhoids were found on perianal exam. Two sessile polyps were found in the transverse colon and cecum. The polyps were 5 to 9 mm in size. These polyps were removed with a cold snare. Resection and retrieval were complete. Estimated blood loss was minimal. A 3 mm polyp was found in the ascending colon. The polyp was sessile. The polyp was removed with a jumbo cold forceps. Resection and retrieval were complete. Estimated blood loss was minimal. A 10 mm polyp was found in the sigmoid colon. The polyp was pedunculated. The polyp was removed with a hot snare. Resection and retrieval were complete. Estimated blood loss was minimal. The exam was otherwise without abnormality on direct and retroflexion views. Procedure Code(s): --- Professional --- 56518, Colonoscopy, flexible; with removal of tumor(s), polyp(s), or other lesion(s) by snare technique 47516, 59, Colonoscopy, flexible; with biopsy, single or multiple Diagnosis Code(s): --- Professional --- Z12.11, Encounter for screening for malignant neoplasm of colon K64.9, Unspecified hemorrhoids D12.0, Benign neoplasm of cecum D12.3, Benign neoplasm of transverse colon (hepatic flexure or splenic flexure) D12.2, Benign neoplasm of ascending colon D12.5, Benign neoplasm of sigmoid colon CPT copyright 2020 [employer]. All rights reserved. The codes documented in this report are preliminary and upon radiation protection engineer review may be revised to meet current compliance requirements. CARLOS Cintron DO 09/15/2024 12:53:53 PM This report has been signed electronically.Carlos Cintron DO Number of Addenda: 0 Note Initiated On: 09/15/2024 12:31 PM Scope Withdrawal Time: 0 hours 12 minutes 50 seconds Scope In: 12:34:07 PM Scope Out: 12:50:01 PM Endoscopy Department at [facility] - [address] [place] [id number] Procedure Note Carlos Cintron DO - 09/15/2024 [facility] Patient Name: Shavonne Alexsi Procedure Date: 09/15/2024 12:31 PM Date of : 1955 Age: 69 Gender: Female Note Status: Finalized Attending MD: Carlos Cintron DO, [id number] Procedure Date No Time: 09/15/2024 Procedure: Colonoscopy Indications: Screening for colorectal malignant neoplasm Providers: Carlos Cintron DO Referring MD: Carlos Abdulaziz, DO Medicines: Monitored Anesthesia Care Complications: No immediate complications. Estimated blood loss: Minimal. Estimated Blood Loss: Estimated blood loss was minimal. Procedure: Pre-Anesthesia Assessment: - - Prior to the procedure, a History and Physicalwas performed, and patient medications and allergieswere reviewed. The patient is competent. The risks and benefits of the procedure and the sedation optionsand risks were discussed with the patient. Allquestions were answered and informed consent was obtained. Patient identification and proposed procedure were verified by the physician, the nurse, the anesthesiologist, the synthetic chemist and thetechnician in the pre-procedure area in the endoscopy suite. Mental Status Examination: alert and oriented.Airway Examination: normal oropharyngeal airway and neck mobility. Respiratory Examination: clear to auscultation. CV Examination: normal. Prophylactic Antibiotics: The patient does not requireprophylactic antibiotics. Prior Anticoagulants: The patient has taken no anticoagulant or antiplatelet agents. ASA Grade Assessment: II - A patient with severesystemic disease. After reviewing the risks and benefits,the patient was deemed in satisfactory condition to undergo the procedure. The anesthesia plan was touse monitored anesthesia care (MAC). Immediately priorto administration of medications, the patient was re-assessed for adequacy to receive sedatives. The heart rate, respiratory rate, oxygen saturations, blood pressure, adequacy of pulmonary ventilation,and response to care were monitored throughout the procedure. The physical status of the patient was re-assessed after the procedure. After I obtained informed consent, the scope was passed under direct vision. Throughout theprocedure, the patient's blood pressure, pulse, and oxygen saturations were monitored continuously. TheOlympus Pediatric Colonoscope was introduced through theanus and advanced to the cecum, identified byappendiceal orifice and ileocecal valve. The colonoscopy was performed without difficulty. The patient tolerated the procedure well. The quality of the bowel preparation was good. Findings: Hemorrhoids were found on perianal exam. Two sessile polyps were found in the transversecolon and cecum. The polyps were 5 to 9 mm in size. These polyps were removed with a cold snare. Resectionand retrieval were complete. Estimated blood loss was minimal. A 3 mm polyp was found in the ascending colon. The polyp was sessile. The polyp was removed with ajumbo cold forceps. Resection and retrieval werecomplete. Estimated blood loss was minimal. A 10 mm polyp was found in the sigmoid colon. The polyp was pedunculated. The polyp was removed witha hot snare. Resection and retrieval were complete. Estimated blood loss was minimal. The exam was otherwise without abnormality ondirect and retroflexion views. Procedure Code(s): --- Professional --- 28451, Colonoscopy, flexible; with removal of tumor(s), polyp(s), or other lesion(s) by snare technique 77010, 59, Colonoscopy, flexible; with biopsy,single or multiple Diagnosis Code(s): --- Professional --- Z12.11, Encounter for screening for malignantneoplasm of colon K64.9, Unspecified hemorrhoids D12.0, Benign neoplasm of cecum D12.3, Benign neoplasm of transverse colon (hepatic flexure or splenic flexure) D12.2, Benign neoplasm of ascending colon D12.5, Benign neoplasm of sigmoid colon CPT copyright 2020 [employer]. All rights reserved. The codes documented in this report are preliminary and upon radiation protection engineer reviewmay be revised to meet current compliance requirements. CARLOS Cintron DO 09/15/2024 12:53:53 PM This report has been signed electronically.Carlos Cintron DO Number of Addenda: 0 Note Initiated On: 09/15/2024 12:31 PM Scope Withdrawal Time: 0 hours 12 minutes 50 seconds Scope In: 12:34:07 PM Scope Out: 12:50:01 PM Endoscopy Department at [address] [phone] IMPRESSION: - Hemorrhoids found on perianal exam. - Two 5 to 9 mm polyps in the transverse colon andin the cecum, removed with a cold snare. Resected and retrieved. - One 3 mm polyp in the ascending colon, removedwith a jumbo cold forceps. Resected and retrieved. - One 10 mm polyp in the sigmoid colon, removedwith a hot snare. Resected and retrieved. - The examination was otherwise normal on directand retroflexion views. Recommendation: - - Discharge patient to home. - High fiber diet. - Continue present medications. - Await pathology results. - Repeat colonoscopy for surveillance based on pathology results. Carlos Cintron DO GI~PROCEDURE ORDERABLES Final Re sult * Depression Screening (04/07/2024) Depression Screening abstracted us Historical Provider HEALTH MAINTENANCE Final Result * Hepatitis C Screening (11/22/2018) Hepatitis C Screening abstracted us Historical Provider HEALTH MAINTENANCE Final Result from Last 3 Months or Most Recently Relevant to Health Maintenance Insurance [facility] Member Subscriber Plan / Payer (Ef fective 2024-Present) Name:SHAVONNE OVERTON Relation to Subscriber:Self Name:Shavonne Alexis Payer ID:[id number] Type:Not on file Address: [place] [address] [address] [phone] Care Teams Environmental Health Technologist Relationship Specialty Start Date End Date Sravani Washington MD [address] [place] [phone] PCP - General Internal Medicine 05/13/22
== END 2025-07-12 14:43 | disposition home or self-care (01) ==
PROVIDERS: PCP Student in an Organized Health Care Education/Training Program; Visit Provider Student in an Organized Health Care Education/Training Program
DX: E11.9 Type 2 diabetes mellitus without complications (principal); D17.9 Benign lipomatous neoplasm, unspecified; M85.80 Other specified disorders of bone density and structure, unspecified site; Z85.43 Personal history of malignant neoplasm of ovary; Z90.710 Acquired absence of both cervix and uterus; M17.12 Unilateral primary osteoarthritis, left knee; Z98.49 Cataract extraction status, unspecified eye

== ENCOUNTER 2025-07-26 13:39 | Outpatient (AMB) | payer OTHER, SELFPAY ==
[2025-07-26 13:42] VITALS: BP 130/70; PULSE 79; RESP 16; TEMP 36.5; O2SAT 98; BMI 24.7
--- NOTE | 2025-07-26 13:42 | A.OFFPC_ITS ---
Vital Signs 07/26/25 13:42 Height 5 ft 3.58 in Weight 142 lb BMI 24.7 BP 130/70 Blood Pressure Location Lt brachial Position Sitting Respiration 16 Pulse 79 Pulse Source Pulse Oximeter Temp 97.7 F Temp Source Oral Pulse Oximetry (%) 98 Oxygen Delivery Method Room Air Intake Visit Reasons: 2 wk f/u Hand Knitter Required: No Accompanied by: Self / Same As Patient Allergies No Known Allergies Allergy (Verified 07/26/25 13:43) Tobacco use date assessed: 07/26/25 Fall risk assessment: No Falls in past year Last assessed Fall Risk: 07/12/25 Dental Screening Dental Screen Date: 07/26/25 Did you have a dental visit in the last 12 months?: Yes Did you have a dental problem in the last 6 months where you did not have access to dental care?: No Was dental information given to patient?: Patient has dentist HPI HPI Comments History of Present Illness Details Consent Patient was informed and verbally consented to the use of an ambient scribe for clinic note documentation during this visit. History of Present Illness The patient is a 69-year-old female presenting with the review of her laboratory results and management of her chronic conditions. Diabetes Mellitus: - The patient's Hemoglobin A1c is 7.1, i ndicating uncontrolled diabetes. - She previously experienced adverse eff ects from metformin, leading to its d iscontinuation. - Jardiance was discussed as an alternat lázaro treatment to help lower her A1c to 6.5. Hypertriglyceridemia: - The patient's triglycerides are elevat ed at 193 mg/dL, above the normal range. - Pravastatin dosage was increased to 20 mg to aid in lowering triglycerides and LDL cholesterol. Subclinical Hypothyroidism: - The patient has subclinical hypothyroi dism, which is being monitored to prevent progression to overt hypothyroidism. Carpal Tunnel Syndrome: - The patient experiences symptoms sugge stive of carpal tunnel syndrome, likely related to her diabetes. - A wrist brace was recommended for use, especially at night, to alleviate symptoms. Review of Systems - Endocrine: Reports no symptoms of over t hypothyroidism. - Musculoskeletal: Reports symptoms sugg estive of carpal tunnel syndrome. 10-point ROS reviewed and negative excep t as noted in HPI Past Medical History - Diabetes Mellitus - Hypertriglyceridemia - Subclinical Hypothyroidism - Carpal Tunnel Syndrome Health Maintenance - Monitoring of Hemoglobin A1c for diabe ralph management. - Monitoring of liver enzymes and trigly cerides. Physical Exam General: Well-appearing, in no acute distress. Vital signs: Within normal limits. HEENT: Normocephalic, atraumatic. PERRLA, EOMI. Conjunctiva clear, sclera anicteric. Oropharynx clear, mucous membranes moist. TMs intact bilaterally. Neck: Supple, no lymphadenopathy, no thyromegaly, no JVD or carotid bruits. Cardiovascular: RRR, normal S1/S2, no murmurs, rubs, or gallops. Peripheral pulses 2+ and symmetric. No edema. Respiratory: Lungs clear to auscultation bilaterally, no wheezes, rales, or rhonchi. Normal effort. Abdomen: Soft, non-tender, non-distended. Normoactive bowel sounds. No hepatosplenomegaly, no masses. MSK: Full range of motion, no joint swelling or deformity. Normal gait. Skin: Warm, dry, intact. No rashes, lesions, or pallor. Neuro: Alert and oriented x3. Cranial nerves II-XII intact. Strength 5/5 throughout. Sensation intact. Reflexes 2+ symmetric. Normal coordination and gait. Fellen's test is negative. Signs suggestive of early carpal tunnel syndrome. Psych: Appropriate mood and affect. Normal judgment and insight. Plan 1. Diabetes Mellitus - Initiate Jardiance at 50 mg once daily to lower Hemoglobin A1c to target levels. 2. Hypertriglyceridemia - Increase pravastatin to 20 mg to manag e elevated triglycerides and LDL cholesterol. 3. Subclinical Hypothyroidism - Continue monitoring thyroid function t ests to detect any progression to overt hypothyroidism. 4. Carpal Tunnel Syndrome - Recommend use of a wrist brace, partic ularly at night, to alleviate symptoms. Discussion Notes I discussed with the patient the importance of managing her diabetes and hypertriglyceridemia. We reviewed the benefits of starting Jardiance and increasing pravastatin. I explained the need to monitor her thyroid function and the use of a wrist brace for carpal tunnel syndrome. Patient Instructions - Take Jardiance 50 mg once daily as pre scribed. - Increase pravastatin to 20 mg daily. - Use a wrist brace at night to help wit h carpal tunnel symptoms. Medical Decision Making The patient's diabetes is currently uncontrolled with an A1c of 7.1. Jardiance was chosen to lower her A1c due to intolerance to metformin. Pravastatin was increased to address hypertriglyceridemia. Monitoring of thyroid function is necessary due to subclinical hypothyroidism. A wrist brace was recommended for carpal tunnel syndrome symptoms. Total time spent caring for the patient today was minutes. This includes time spent before the visit reviewing the chart, time spent documenting, and time spent reviewing laboratory results, diagnostic imaging, medications, performing a medically necessary evaluation, counseling on diagnoses, care coordination, ordering appropriate tests, ordering appropriate medications, review of tests performed by other providers, reporting test results with the patient, communication with other healthcare providers. [facility] Medical History (Updated 07/12/25 @ 14:33 by Donnie Mayes MD) Lipoma Diabetes type 2 Family History Father Heart problem Cancer Mother Heart problem Social History Housing: Apartment Alcohol intake: current Alcohol intake frequency: does not drink Patient Tobacco Use Status: Never used Tobacco service: No Current occupational status: disabled Cognitive needs: Yes (cane) Hearing needs: No Vision needs: Yes (rx glasses) Questionnaire PHQ-9 Over the last 2 weeks, how often have you been bothered by any of the following problems? 1. Little interest or pleasure in doing things: several days 2. Feeling down, depressed, or hopeless: not at all 3. Trouble falling or staying asleep, or sleeping too much: nearly every day 4. Feeling tired or having little energy: nearly every day 5. Poor appetite or overeating: several days 6. Feeling bad about yourself - or that you are a failure or have let yourself or your family down: not at all 7. Trouble concentrating on things, such as reading the newspaper or watching television: several days 8. Moving or speaking so slowly that other people could have noticed. Or the opposite - being so fidgety or restless that you have been moving around a lot more than usual: several days 9. Thoughts that you would be better off or of hurting yourself in some way: not at all Total score: 10 Source: Developed by Drs. Willie Waller, Aixa Marino, Damon Dougherty and colleagues, with an educational ole from [employer] Thrive Questionnaire Date Thrive assessed: 07/26/25 I am a: Patient What is your living situation today?: I have a place to live, but I am worried about losing it in the future Within the past 12 months, did the food you bought not last and you didn't have the money to get more?: I choose not to answer this question Within the past 12 months, did you worry whether your food would run out before you got money to buy more?: Sometimes True Do you have trouble paying for medicines?: No Do you have trouble getting transportation to medical appointments?: No Do you have trouble paying your heating and electricity bill?: Yes Do you have trouble taking care of your child, family member or friend?: No Are you currently unemployed and looking for a job?: No Are you interested in more education?: I choose not to answer this question Please select the resources that you would like help with: None Currently or been in a relationship where the following occur: I choose not to answer THRIVE Score: 3 AUDIT C Alcohol Use Questionnaire (AUDIT-C) 1. How often do you have a drink containing alcohol?: Never Total Score: 0 RAHEEL-7 AMB Questionnaire RAHEEL-7 Date RAHEEL - 7 assessed: 07/26/25 Feeling nervous, anxious, or on edge: 3 = Nearly every day Not being able to stop or control worryin = Several days Worrying too much about different things: 2 = More than half the days Trouble relaxin = More than half the days Being so restless that it is hard to sit still: 0 = Not at all Becoming easily annoyed or irritable: 0 = Not at all Feeling afraid as if something awful might happen: 0 = Not at all Total RAHEEL-7 score (0-4 normal; 5-9 mild; 10-14 moderate; 15-21 severe): 8 Source: Developed by Drs. Willie Waller, Aixa Marino, Damon Dougherty and colleagues, with an educational ole from [employer]. Physical exam (Primary Care) Vital Signs: Last Vital Signs Temp 97.7 F 07/26/25 13:42 Pulse 79 07/26/25 13:42 Resp 16 07/26/25 13:42 BP 130/70 07/26/25 13:42 Pulse Ox 98 07/26/25 13:42 Oxygen Delivery Method Room Air 07/26/25 13:42 BMI result Body Mass Index 24.7 Tobacco/Smoking Status: Tobacco use Status Tobacco use date assessed 07/26/25 07/26/25 13:46 Patient Tobacco Use Status Never used Tobacco 07/26/25 13:46 PHQ-9: PHQ-9 Score PHQ-9: Total score 10 07/26/25 13:46 Thrive Assessment: Date of Thrive Assessment Date Thrive assessed 07/26/25 07/26/25 13:46 Currently or been in a relationship where the following occur: I choose not to answer Coding Level of Care Code Est Pt Level 4 (03001) Diagnoses Diabetes type 2 E11.9 Hypertriglyceridemia E78.1 Subclinical hypothyroidism E03.8 Carpal tunnel syndrome G56.00 Assessment & Plan Assessment & Plan (1) Diabetes type 2: Code(s): E11.9 - Type 2 diabetes mellitus without complications Category: Medical (2) Hypertriglyceridemia: Code(s): E78.1 - Pure hyperglyceridemia (3) Subclinical hypothyroidism: Code(s): E03.8 - Other specified hypothyroidism (4) Carpal tunnel syndrome: Code(s): G56.00 - Carpal tunnel syndrome, unspecified upper limb Plan Medications: New sitagliptin phosphate (Januvia) 50 mg PO DAILY 90 tabs 0RF pravastatin 20 mg PO BEDTIME 90 tabs 0RF
--- OUTSIDE RECORDS SUMMARY | 2025-07-26 17:24 | XMS_ITS | Clinical Summary ---
Author Organization [address] Address [address] [place] [phone] Phone Care Team Providers Care Machine Heel Seat Fitter Name Role Phone Sravani Washington MD Primary [...] use. She voiced understanding. She was given [facility] information re: LS today and will call with any questions. She will apply the triamcinolone ointment twice daily for two weeks, then nightly with coconut oil in the morning. Controlled type 2 diabetes migue mensah with complication, with long-term current use of insulin ([facility] V24, [facility] V28) 07/29/2024 Assessment & Plan (11/30/2024 11:57 [...] cyst 02/13/2022 Stage 3a chronic kidney disease ([facility] V24, S/[facility] V28) 09/30/2021 Assessment & Plan (03/30/2025 2:50 PM EDT): Assessment & Plan (11/30/2024 11:57 AM EST): GFR has been borderline around 60. Patient is instructed to avoid nephrotoxics. I instructed her to prefer Tylenol for pain. Continue gabapentin as needed for neuropathic pain. DM (diabetes mellitus), type 2 with renal complications ([facility] V24, [facility] V28) 07/18/2021 Assessment & Plan (03/30/2025 2:50 [...] history presenting hazards to health(V15.89) Endometrial cancer [place] [place], [facility] [place]28[place] 2000 DX:Endometrial cancer (HCC) Vitamin D deficiency 07/04/2016 DX:Vitamin D deficiency Osteopenia 08/11/2018 DX:Osteopenia Diabetes mellitus type 2, co ntrolled ([facility] [place], [facility] [place]28[place] 12/22/2012 DX:Diabetes mellitus type 2 , controlled (HCC) Constipation 11/11/2018 DX:Constipation Abnormal LFTs (liver function tests) DX:Abnormal LFTs (liver function tests) Autoimmune hepatitis ([facility] C V24, [facility] V28) DX:Autoimmune hepatitis (HCC ) CKD (chronic kidney disease) stage 3, GFR 30-59 ml/min ([facility] V24, [facility] V28) 07/18/2021 DX:CKD (chronic kidney disea se) stage 3, GFR 30-59 ml/min ([facility]) DM (diabetes mellitus), type 2 with renal complications ([facility] [place], [facility] V28) 07/18/2021 DX:DM (diabetes mellitus), t ype [...] 11:30 AM EST Office Visit Adult Medicine [address] [phone] Sravani Washington MD [address] [place] [address] 12/20/2025 4:30 PM EDT Appointment Radiology Department - [address] [phone] Health Maintenance Due Date Last Done Comments RSV Immunization Adult Patients (1 - Risk 50-74 years 1-dose series) 2006 Zoster Vaccines (2 of 2) 09/04/2019 07/10/2019 [...] complication, with long-term current use of insulin ([facility] V24, [facility] V28) COMPREHENSIVE METABOLIC PANEL Routine 03/23/2025 11:44 AM EDT Controlled type 2 diabetes mellitus with complication, with long-term current use of insulin ([facility] V24, [facility] V28) HEMOGLOBIN A1C Routine 03/23/2025 11:44 AM EDT Controlled type 2 diabetes mellitus with complication, with long-term current use of insulin ([facility] V24, [facility] V28) LIPID PANEL WITH REFLEX TO DIRECT LDL Routine 03/23/2025 11:44 AM EDT Controlled type 2 diabetes mellitus with complication, with long-term current use of insulin ([facility] V24, [facility] V28) EXTERNAL DIABETIC RETINA EYE EXAM 02/20/2025 [...] mg/dL LAB CHEMISTRY METHOD 03/23/2025 3:05 PM [facility] Triglycerides 195(H) 0 - 150 mg/dL LAB CHEMISTRY METHOD 03/23/2025 3:05 PM [facility] HDL 54 >=40 mg/dL LAB CHEMISTRY METHOD 03/23/2025 3:05 PM [facility] LDL Calculated 86 0 - 100 mg/dL LAB CHEMISTRY METHOD 03/23/2025 3:05 PM [facility] VLDL Cholesterol Abdulaziz 39 mg/dL LAB CHEMISTRY METHOD 03/23/2025 3:05 PM [facility] Non HDL Chol. (LDL+VLDL) 125 <145 mg/dL LAB CHEMISTRY METHOD 03/23/2025 3:05 PM [facility] Chol/HDL Ratio 3.3 0.0 - 4.4 LAB CHEMISTRY METHOD 03/23/2025 3:05 PM [facility] Blood Venous blood specimen / Unknown Venipuncture / Unknown 03/23/2025 11:44 AM EDT 03/23/2025 11:44 AM EDT Sravani Washington MD LAB BLOOD ORDERABL ES Final Result Performing Organization Address [facility]/ZIP Co de Phone Number [facility] [address] [place] [address], [place] [phone] * Microalbumin creatinine urine ratio (03/23/2025 11:44 AM EDT) Creatinine, Urine 130.0 mg/dL LAB CHEMISTRY METHOD 03/23/2025 4:[address] [facility] Microalb, Ur 11.1 0.0 - 29.0 mg/L LAB CHEMISTRY METHOD 03/23/2025 4:[address] [facility] Microalb/Creat Ratio 9 <30 mg/g creat LAB CHEMISTRY METHOD 03/23/2025 4:[address] [facility] Urine Urine specimen obtained by clean catch procedure / Unknown Non-blood Collection / Unknown 03/23/2025 11:44 AM EDT 03/23/2025 11:44 AM EDT us Sravani Washington MD LAB URINE ORDERABL ES Final Result Performing Organization Address [facility]/ZIP Co de Phone Number [facility] [address] [place] [address], [place] [phone] * (ABNORMAL) Hemoglobin A1c (03/23/2025 11:44 AM EDT) Hemoglobin A1C 7.1(H) <6.5 % LAB CHEMISTRY METHOD 03/23/2025 9:[address] [facility] Mean Bld Glu Estim. 157 mg/dL LAB CHEMISTRY METHOD 03/23/2025 9:[address] [facility] Blood Venous blood specimen / Unknown Venipuncture / Unknown 03/23/2025 11:44 AM EDT 03/23/2025 11:44 AM EDT Sravani Washington MD LAB BLOOD ORDERABL ES Final Result [facility] [address] [place] [address], [place] [phone] * (ABNORMAL) Comprehensive metabolic panel (03/23/2025 11:44 AM EDT) Pathologist [facility] Sodium 137 133 - 145 mmol/L LAB CHEMISTRY METHOD 03/23/2025 3:05 PM [facility] Potassium 4.9 3.5 - 5.5 mmol/L LAB CHEMISTRY METHOD 03/23/2025 3:05 PM [facility] Chloride 102 96 - 110 mmol/L LAB CHEMISTRY METHOD 03/23/2025 3:05 PM [facility] CO2 32 21 - 32 mmol/L LAB CHEMISTRY METHOD 03/23/2025 3:05 PM [facility] Anion Gap 3 3 - 11 LAB CHEMISTRY METHOD 03/23/2025 3:05 PM [facility] Glucose 147(H) 70 - 100 mg/dL LAB CHEMISTRY METHOD 03/23/2025 3:05 PM [facility] BUN 12 5 - 25 mg/dL LAB CHEMISTRY METHOD 03/23/2025 3:05 PM [facility] Creatinine 0.92 0.50 - 1.10 mg/dL LAB CHEMISTRY METHOD 03/23/2025 3:05 PM [facility] eGFR 68 >=60 mL/min/1. 73m2 LAB CHEMISTRY METHOD 03/23/2025 3:05 PM [facility] Comment:Calculation based on the Chronic Kidney Disease Epidemiology Collaboration (CKD-EPI) equation refit without adjustment for race. BUN/Creatinine Ratio 13.0 LAB CHEMISTRY METHOD 03/23/2025 3:05 PM [facility] Calcium 9.7 8.5 - 10.5 mg/dL LAB CHEMISTRY METHOD 03/23/2025 3:05 PM [facility] AST (SGOT) 42 10 - 42 unit/L LAB CHEMISTRY METHOD 03/23/2025 3:05 PM [facility] ALT (SGPT) 53 10 - 60 unit/L LAB CHEMISTRY METHOD 03/23/2025 3:05 PM [facility] Alkaline Phosphatase 136(H) 42 - 121 unit/L LAB CHEMISTRY METHOD 03/23/2025 3:05 PM [facility] Total Protein 7.0 6.0 - 8.0 g/dL LAB CHEMISTRY METHOD 03/23/2025 3:05 PM [facility] Albumin 3.8 3.2 - 5.0 g/dL LAB CHEMISTRY METHOD 03/23/2025 3:05 PM [facility] Total Bilirubin 0.6 0.0 - 1.4 mg/dL LAB CHEMISTRY METHOD 03/23/2025 3:05 PM [facility] Blood Venous blood specimen / Unknown Venipuncture / Unknown 03/23/2025 11:44 AM EDT 03/23/2025 11:44 AM EDT us Sravani Washington MD LAB BLOOD ORDERABL ES Final Result [facility] [address] [place] [address], [place] [phone] * External Diabetic Retina Eye Exam Report [...] Signed Date: 12/16/2024 16:53 ET Workstation ID: [id number] Transcribed By: Self Edit Transcribed Date: 12/16/2024 16:52 ET Narrative 12/16/2024 4:53 PM EST Clinical history: osteoporosis Scans of the lumbar spine and hips were performed on a [employer] fan beam bone densitometer. Bone mineral density [...] spine and hips were performed on a [employer] beam bone densitometer. Bone mineral density measurements [...] Signed Date: 12/16/2024 16:53 ET Workstation ID: [id number] Transcribed By: Self Edit Transcribed Date: 12/16/2024 [...] is recommended in 1 year. MAMMO LOCATION: [facility], [address] [place] [address], [id number], . -------- FINAL REPORT -------- Dictated By: Christa Garzon Dictated Date: 12/15/2024 18:03 ET Assigned Physician: Christa Garzon Reviewed and Electronically Signed By: Christa Garzon Signed Date: 12/15/2024 18:05 ET Workstation ID: [id number] Transcribed By: Self Edit Transcribed Date: 12/15/2024 [...] is recommended in 1 year. MAMMO LOCATION: [facility], [address] [place] [address], [id number], . -------- FINAL REPORT -------- Dictated By: Christa Garzon Dictated Date: 12/15/2024 18:03 ET Assigned Physician: Christa Garzon Reviewed and Electronically Signed By: Christa Garzon Signed Date: 12/15/2024 18:05 ET Workstation ID: [id number] Transcribed By: Self Edit Transcribed Date: 12/15/2024 18:03 ET Sravani Washington MD IM BI PROCEDURES Final Result * COLONOSCOPY Anesthesia - MAC; [facility] ENDOSCOPY (09/15/2024 12:52 PM EST) Anatomical Region [...] pathology results. Narrative 09/15/2024 12:54 PM EST [facility] GI Patient Name: Shavonne Alexis Procedure Date: 09/15/2024 12:31 PM Date of : 1955 Age: 69 Gender: Female Note Status: Finalized Attending MD: Carlos Cintron DO, [id number] Procedure Date No Time: 09/15/2024 Procedure: Colonoscopy [...] the physician, the nurse, the anesthesiologist, the leasing sales consultant and the explosive technician in the pre-procedure area in the [...] retroflexion views. Procedure Code(s): --- Professional --- 08440, Colonoscopy, flexible; with removal of tumor(s), polyp(s), or other lesion(s) by snare technique 93103, 59, Colonoscopy, flexible; with biopsy, single or multiple Diagnosis Code(s): --- Professional --- Z12.11, Encounter for screening for malignant neoplasm of colon K64.9, Unspecified hemorrhoids D12.0, Benign neoplasm of cecum D12.3, Benign neoplasm of transverse colon (hepatic flexure or splenic flexure) D12.2, Benign neoplasm of ascending colon D12.5, Benign neoplasm of sigmoid colon CPT copyright 2020 [employer]. All rights reserved. The codes documented in this report are preliminary and upon information resource consultant review may be revised to meet current compliance requirements. CARLOS Cintron DO 09/15/2024 12:53:53 PM This report has been signed electronically.Carlos Cintron DO Number of Addenda: 0 Note Initiated On: 09/15/2024 12:31 PM Scope Withdrawal Time: 0 hours 12 minutes 50 seconds Scope In: 12:34:07 PM Scope Out: 12:50:01 PM Endoscopy Department at [facility] - [address] [place] [phone] Procedure Note Carlos Cintron DO - 09/15/2024 [facility] GI Patient Name: Shavonne Alexis Procedure Date: 09/15/2024 12:31 PM Date of : 1955 Age: 69 Gender: Female Note Status: Finalized Attending MD: Carlos Cintron DO, [id number] Procedure Date No Time: 09/15/2024 Procedure: Colonoscopy [...] the physician, the nurse, the anesthesiologist, the leasing sales consultant and thetechnician in the pre-procedure area in [...] retroflexion views. Procedure Code(s): --- Professional --- 88305, Colonoscopy, flexible; with removal of tumor(s), polyp(s), or other lesion(s) by snare technique 39583, 59, Colonoscopy, flexible; with biopsy,single or multiple Diagnosis Code(s): --- Professional --- Z12.11, Encounter for screening for malignantneoplasm of colon K64.9, Unspecified hemorrhoids D12.0, Benign neoplasm of cecum D12.3, Benign neoplasm of transverse colon (hepatic flexure or splenic flexure) D12.2, Benign neoplasm of ascending colon D12.5, Benign neoplasm of sigmoid colon CPT copyright 2020 [employer] [employer]. All rights reserved. The codes documented in this report are preliminary and upon information resource consultant reviewmay be revised to meet current compliance requirements. CARLOS Cintron DO 09/15/2024 12:53:53 PM This report has been signed electronically.Carlos Cintron DO Number of Addenda: 0 Note Initiated On: 09/15/2024 12:31 PM Scope Withdrawal Time: 0 hours 12 minutes 50 seconds Scope In: 12:34:07 PM Scope Out: 12:50:01 PM Endoscopy Department at [address] [phone] IMPRESSION: - Hemorrhoids found on perianal exam. [...] Most Recently Relevant to Health Maintenance Insurance [facility] MEDIC[facility] Member Subscriber Plan / Payer (Ef fective 2024-Present) Name:SHAVONNE OVERTON Relation to Subscriber:Self Name:Shavonne Alexis Payer ID:[id number] Type:Not on file Address: [place] [address] [address] [phone] Care Teams Machine Heel Seat Fitter Relationship Specialty Start Date End Date Sravani Washington MD [address] [place] [phone] PCP - General Internal Medicine 05/13/22
== END 2025-07-26 14:17 | disposition home or self-care (01) ==
LOC: HO.HMCFMS 13:40
PROVIDERS: PCP Student in an Organized Health Care Education/Training Program; Visit Provider Student in an Organized Health Care Education/Training Program
DX: E11.9 Type 2 diabetes mellitus without complications (principal); E78.1 Pure hyperglyceridemia; E03.8 Other specified hypothyroidism; G56.00 Carpal tunnel syndrome, unspecified upper limb

== ENCOUNTER → 2025-07-26 13:39 | Outpatient (BNVA) | payer OTHER, SELFPAY | PROVIDERS: PCP Student in an Organized Health Care Education/Training Program; Visit Provider Student in an Organized Health Care Education/Training Program | DX: E11.9 Type 2 diabetes mellitus without complications (principal); E78.1 Pure hyperglyceridemia; E03.8 Other specified hypothyroidism; G56.00 Carpal tunnel syndrome, unspecified upper limb | CPT/HCPCS: 96127; 99212 ==

== ENCOUNTER 2025-08-29 12:09 | Outpatient (AMB) | payer OTHER, SELFPAY ==
--- NOTE | 2025-08-29 12:39 | MHC.OFFVIS ---
Vital Signs 08/29/25 12:40 Height 5 ft 4 in Weight 140 lb BMI 24.0 Intake Visit Reasons: Type II Diabetes Intake Note: Shavonne is a 69 year old female who presents today as a new patient for a diabetic foot exam. Patient reports her glucose was 145 in the morning and her last reported A1c was 7.1%. She experiences tingling with burning and describes occasional electric shock and pin and needles sensation in her feet. She denies any previous history of wounds or amputations in her feet. Patient mentions she experiences back pain and she is currently taking gabapentin. Allergies No Known Allergies Allergy (Verified 08/29/25 12:40) HPI Comments Details: The patient is a 69-year-old female with a past medical history as seen below presenting for a diabetic foot exam. Patient states she experiences pain to the right foot in the posterior aspect of the heel. The patient experiences tingling, burning, and electric shock sensations in the feet. She states her blood glucose was 145 mg/dL this morning and states her A1c is approximately 7.1. Patient states she is currently on gabapentin and states she has a history of back injuries and pain. She denies any new pedal injuries. She denies any other pedal concerns. Patient was accompanied by her son. 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 Physical Exam Vital Signs: BMI result Body Mass Index 24.0 Extrem Other: Bilateral lower extremity focused physical exam: Derm: No open lesions abrasions or wounds noted. No clinical signs of infection. No ecchymosis or discoloration noted. Toenails noted to be slightly thickened but of normal length. Vascular: DP/PT pulses palpable. Capillary refill time less than 3 seconds. Temperature gradient warm to warm. Pedal hair absent. Minimal varicosities noted. No edema noted. Neuro: Protective sensation is grossly intact to light touch and monofilament testing, but patient states she experiences numbness, tingling, and electric shock sensations. MSK: Pain on palpation to the posterior aspects of the right heel in the area of the achilles insertion point. No palpable dell noted. ROM of the forefoot, hindfoot, and ankles WNL. No crepitus or fluctuance noted. Non-antalgic gait unassisted noted. Hammertoe deformities noted. Office Procedures Diabetic Foot Exam G9226 - Diabetic Foot Exam Results Reviewed Results Reviewed: Laboratory Tests 07/12/25 15:07 Random Glucose 94 Estimat Average Glucose 157 Hemoglobin A1c % 7.1 H AST 46 H ALT 39 H Patient had xrays done somewhere else and will bring them at the next appt. Assessment & Plan Assessment & Plan (1) Diabetes type 2: Code(s): E11.9 - Type 2 diabetes mellitus without complications Category: Medical (2) Diabetic neuropathy: Code(s): E11.40 - Type 2 diabetes mellitus with diabetic neuropathy, unspecified Category: Medical (3) Acquired hammer toe deformity of lesser toe of both feet: Code(s): M20.41 - Other hammer toe(s) (acquired), right foot; M20.42 - Other hammer toe(s) (acquired), left foot Category: Medical (4) Insertional Achilles tendinopathy: Code(s): M76.60 - Achilles tendinitis, unspecified leg Category: Medical Plan Patient was informed and verbally consented to the use of an ambient scribe for clinic note documentation during this visit. I discussed with the patient the likelihood of bone spur formation due to Achilles tendon inflammation. Educated patient on diabetes and the effects on the lower extremities. We talked about the importance of x-rays to confirm the diagnosis and the benefits of diabetic shoes and inserts in managing foot health. I emphasized the need for regular follow-up to monitor the condition and prevent complications. - Patient states she had x-rays done at a different location and will bring them in at her next appointment. - Prescribed diabetic shoes and inserts to prevent further complications and alleviate pressure on the feet. - Educate the patient on managing peripheral neuropathy to prevent progression. - Advised patient to wear supportive shoe gear and to avoid barefoot walking. RTC in 9 weeks. Orders: Orders AMB Diabetic Foot Exam 08/29/25 E11.40 - Type 2 diabetes mellitus with diabetic neuropathy, unspecified, E11.9 - Type 2 diabetes mellitus without complications Medications: New [diabetic shoes and inserts] As directed 1 ea 0RF E11.40 - Type 2 diabetes mellitus with diabetic neuropathy, unspecified, E11.9 - Type 2 diabetes mellitus without complications, M20.41 - Other hammer toe(s) (acquired), right foot, M20.42 - Other hammer toe(s) (acquired), left foot Coding Level of Care Code New Pt Level 4 (69361) Diagnoses Diabetes type 2 E11.9 Diabetic neuropathy E11.40 Acquired hammer toe deformity of lesser toe of both feet M20.41; M20.42 Insertional Achilles tendinopathy M76.60 CPT Codes Diabetic Foot Exam - CPT: G9226 - Diabetic Foot Exam ([id number]) Time Spent (min) 48
[2025-08-29 12:40] VITALS: BMI 24.0
== END 2025-08-29 12:58 | disposition home or self-care (01) ==
LOC: HO.HPODS 12:10
PROVIDERS: PCP Student in an Organized Health Care Education/Training Program; Visit Provider Student in an Organized Health Care Education/Training Program
DX: E11.40 Type 2 diabetes mellitus with diabetic neuropathy, unspecified (principal); M20.41 Other hammer toe(s) (acquired), right foot; M20.42 Other hammer toe(s) (acquired), left foot; M76.60 Achilles tendinitis, unspecified leg
CPT/HCPCS: 99204; G9226

== ENCOUNTER → 2025-08-29 12:09 | Outpatient (BNVA) | payer OTHER, SELFPAY | PROVIDERS: PCP Student in an Organized Health Care Education/Training Program; Visit Provider Student in an Organized Health Care Education/Training Program | DX: E11.40 Type 2 diabetes mellitus with diabetic neuropathy, unspecified (principal); M20.41 Other hammer toe(s) (acquired), right foot; M20.42 Other hammer toe(s) (acquired), left foot; M76.60 Achilles tendinitis, unspecified leg | CPT/HCPCS: 99202 ==